=== PATIENT | female | born 1990 | race Caucasian/White ===

== ENCOUNTER 2021-01-07 00:40 | Inpatient (IN) ==
[2021-01-07] MEDS ORDERED: LACTATED RINGER'S 1,000 ML IV PRN (01:11)
[2021-01-07] MEDS ORDERED: OXYTOCIN 30 UNITS/500 ML BAG IV PRN ×2 (01:11→03:00)
[2021-01-07] MEDS ORDERED: PENICILLIN G POTASSIUM 3 MU in DEXTROSE 5% 100 ML IV PRN (01:11)
[2021-01-07] MEDS ORDERED: PENICILLIN G POTASSIUM 6 MU in DEXTROSE 5% 250 ML IV STA (01:19)
--- NOTE | 2021-01-07 01:19 | History & Physical Report ---
Date of Service January 07, 2021 Assessment & Plan (1) Normal labor: Patient presents now in active labor. admit. treat gbs with pcn. Desires unmedicated , had this last time. fetus category one. Anticipate . History of Present Illness Chief Complaint: contractions Primary Care Provider: Alesha Cordova Patient is a 30yowf at 39 3/7 weeks who presents with contractions. Seen last evening for r/o rom and not rom. cx 3cm at that time. uncomplicated. labs--O+/ab-/ri/rprnr/hepb-/hiv-/ gc/ct neg/ gbs positive urine/ declined panorama/cf/sma/afp/ gtt x 2 nl Allergies Allergy/AdvReac Type Severity Reaction Status Date / Time No Known Allergies Allergy Verified 01/06/21 16:20 Home Medications Medication Instructions Recorded Confirmed Type prenat.vits,cierra,agz-sfxq-vkzpq 1 tab PO DAILY 10/21/20 01/06/21 History breast pump #1 ea 11/04/20 01/06/21 Rx Patient History Medical History at early stage SROM (spontaneous rupture of membranes) Status post vacuum-assisted vaginal delivery Varicella vaccination Surgical History Tiffin teeth extracted Family History Grandmother (Paternal) Factor V Leiden Grandmother (Maternal) Diabetes Denies family history of Ovarian cancer Breast cancer Colorectal cancer Social History Smoking Status: Never smoker Hx Alcohol Use: No Hx Substance Use: No Preferred Language: Thai Communication Ability: Effective Salon Coordinator Required: No Beliefs That Will Affect Care: None marital status: marital status details: Adan Hartley (30) [phone] Current Living Situation: Spouse and Family Current Living Situation Comment: lives with spouse, daughter, no pets current occupational status: employed current occupation: [employer] Feels Safe at Home: Yes Assistive Devices: Contacts OB History g1--05/17, 39 weeks, 7#6oz, vavd SOCK MENDER History noncontributory Physical Exam Constitutional: WD/WN, vitals as above Gastrointestinal (Abdomen): soft, gravid, nt Psychiatric: A+Ox3, euthymic affect Genitourinary: cx--/-1 per nursing toco--q 2-4min efm--120s with mod variabiltiy, accels to 160s, no decels Results & Data ([facility]) Vital Signs (Past 12 Hours) Vital Signs Pulse BP 01/07/21 01:02 73 127/80 Code Status & VTE Plan VTE Prophylaxis Plan VTE Prophylaxis will be ordered: No Coding Level of Care Code None Diagnoses Normal labor O80; Z37.9
[2021-01-07 01:42] LABS: Hematocrit (blood only) 36.6 % (37-47); Hemoglobin 12.6 g/dL (12.0-16.0); Mean Corpuscular Hgb Conc 34.4 g/dL (32-36); Mean Corpuscular Volume 95.8 fL (80-100); Mean Platelet Volume 11.3 fL (7.4-10.4); Platelet Count 169 K/uL (130-400); RDW Coefficient of Variation 13.3 % (11.5-14.5); RDW Standard Deviation 45.4 fL (36.4-46.3); Red Blood Count 3.82 M/uL (4.2-5.4); White Blood Count 11.86 K/uL (4.8-10.8)
[2021-01-07] MEDS ORDERED: LIDOCAINE/EPINEPHRINE 1% 20 ML VIAL ONE (02:11)
[2021-01-07] MEDS ORDERED: LIDOCAINE 1% LOCAL 20 ML VIAL ONE (02:12)
[2021-01-07] MEDS ORDERED: oxyCODONE/ACETAMINOPHEN 5mg/325mg TAB PO PRN (02:31)
[2021-01-07] MEDS ORDERED: ACETAMINOPHEN 325 MG TAB PO PRN ×2 (02:31→03:00)
--- NOTE | 2021-01-07 02:35 | Delivery Summary ---
Vaginal Delivery Summary Date of Service January 07, 2021 Pre-operative Diagnosis: at 39 weeks active labor gbs positive Post-operative Diagnosis: same Procedure: pcn arom second degree laceration and right labial laceration with repair EBL: 400cc Anesthesia: local infiltration of 1% lidocaine Procedure: Patient progressed rapidly and was pushing involuntarily. We were not going to get pcn on board. ant lip and arom for small amount of clear fluid. Anterior lip reduced. The patient pushed for about 30 min to deliver a viable female in rop position. There was a tight nuchal cord that was clamped and cut on the perineum. The rest of the infant was then delivered. The nose and mouth were bulb suctioned and the infant was placed in the maternal abdomen for drying and attention. Cord blood obtained. Placenta delivered spontaneous, intact with a three vessel cord. Cervix/sulci/rectum were intact. A second degree perineal laceration and a right labial laceration were repaired in the normal standard fashion. Hemostasis obtained with dilute pitocin and fundal massage. Apgars were 8/8. Mother and baby doing well at the end of the delivery. Vaginal Delivery Summary and 2nd Degree LAC [facility] Vaginal Delivery Charge Vaginal Delivery Codes: 64484 global code for the antepartum, delivery, and post- Delivery Type Details: and 2nd Degree LAC
[2021-01-07] MEDS ORDERED: bisacodyL 10 MG SUPP PR PRN (03:00)
[2021-01-07] MEDS ORDERED: HYDROCORTISONE ACETATE 25 MG SUPP PR PRN (03:00)
[2021-01-07] MEDS ORDERED: BENZOCAINE 20% AER SPR 82.5 GM CAN EXT PRN (03:00)
[2021-01-07] MEDS ORDERED: SUPERCREAM 0.870% 15 GM JAR EXT PRN (03:00)
[2021-01-07] MEDS ORDERED: DIPHTHERIA/TETANUS/PERTUSSIS 0.5 ML SYR/VIAL IM ONE (03:00)
[2021-01-07] MEDS: IBUPROFEN 600 MG TAB PO PRN ×3 (03:21→21:07)
[2021-01-07] MEDS: DOCUSATE SODIUM 100 MG CAP PO SCH ×2 (08:02→21:07)
[2021-01-07] MEDS: PRENATAL VITAMIN 1 TAB PO SCH (08:02)
--- NOTE | 2021-01-08 05:47 | Obstetrical Progress Note ---
Date of Service <Gavin Keys MD - Last Filed: 01/08/21 06:41> January 08, 2021 Assessment & Plan <Gavin Keys MD - Last Filed: 01/08/21 06:41> (1) Normal labor: - PNL: Rh pos, RI, GBS positive urine, COVID neg - Feels well today. Eating well, voiding well, ambulating well - Pain well controlled with ibuprofen 600mg Q4H PRN - Routine care -- OOB, ambulation, diet progression as tolerated - After discharge will have 6 week follow-up with Dr. Oliver Subjective <Gavin Keys MD - Last Filed: 01/08/21 06:41> Apple is a 30 y/o female who is PPD #1 following at 39 3/7 weeks. She reports feeling well overall this morning. Light abdominal cramping and 0/10 pain well managed on analgesics. Voiding well. Tolerating meals overnight without difficulty. Patient has been able to ambulate some. Has persistent lochia with some improvement this morning. Currently without issues. Review of Systems Denies fever or chills. Denies shortness of breath or cough. Denies chest pain. Denies breast pain. Denies dysuria. Denies leg pain or leg swelling. Denies headache or changes in vision. Physical Exam <Gavin Keys MD - Last Filed: 01/08/21 06:41> General: Alert, oriented. No acute distress. Cardiac: Regular rate and rhythm. No murmurs. Respiratory: Clear to auscultation bilaterally a/p, no wheezes/rales/rhonchi. No increased work of breathing. Symmetrical chest rise. No respiratory distress. Abdomen: Soft, nontender, nondistended. Bowel sounds present. Uterus: Uterine fundus firm, palpable ~1 cm below umbilicus. Lower Extremities: No lower extremity edema or swelling. No deep calf pain. Jose's negative bilaterally. Results & Data ([facility]) <Gavin Keys MD - Last Filed: 01/08/21 06:41> Vital Signs (Past 12 Hours) Vital Signs Temp Pulse Resp BP Pulse Ox 01/07/21 23:30 36.7 C 80 18 106/71 01/07/21 18:56 36.6 C 72 16 107/71 98 <Re Garcia MD - Last Filed: 01/08/21 07:21> Co-Signing Physician Notes Resident Physician Supervision Note: I interviewed and examined the patient. Discussed with Dr. Sneed and agree with findings and plan as documented in the note. Any exceptions or clarifications are listed here: PP1 from delivery around 2AM yesterday. Meeting milestones. Desires d/c home today if peds ok's it due to inadequate tx. Stable for d/c from OB standpoint if ok with peds otherwise will stay one more night Documented By: Re Garcia MD Resident Activity Tracking <Gavin Keys MD - Last Filed: 01/08/21 06:41> Resident Involvement: Resident Care Provided Care Provided: OB Delivery
[2021-01-08 06:17] LABS: Hematocrit (blood only) 31.8 % (37-47); Hemoglobin 10.7 g/dL (12.0-16.0)
[2021-01-08] MEDS: IBUPROFEN 600 MG TAB PO PRN (07:26)
[2021-01-08] MEDS: DOCUSATE SODIUM 100 MG CAP PO SCH (07:26)
[2021-01-08] MEDS: PRENATAL VITAMIN 1 TAB PO SCH (07:26)
[2021-01-08] MEDS ORDERED: bisacodyL 5 MG TABEC PO SCH (20:00)
== END 2021-01-08 10:40 | disposition home or self-care (01) | DRG 807 ==
LOC: OPB 00:40 → 4S1 00:44 → 4S2 05:00